=== PATIENT | female | born 1970 | race Caucasian/White ===

== ENCOUNTER 2017-04-09 16:40 | Emergency (ER) | payer OTHER ==
[2017-04-09 16:55] VITALS: BP 107/72
--- NOTE | 2017-04-09 18:40 | UC ---
Eye Complaint HPI - HPI Summary HPI Summary: 46 y/o female presents to the urgent care c/o RT eye redness with moderate yellowish eye discharge for the past week. Associated with a mild SIMS 4/10. Pt reports She has HX of allergic rhinitis and she thought the first days it was allergic conjunctivitis and placed some clear drops on her eyes. But now she is waking up with a crusting yellowish discharge in the morning w/ mild visual disturbance. Pt denies fever, eye pain, SOB, chest pain. N/V/D. Pt has not other complains. - History of Current Complaint Hx Obtained From: Patient Hx Last Menstrual Period: 03/21/17 ?: No Onset/Duration: Sudden Onset Timing: Constant Severity Initially: Mild Severity Currently: Moderate Pain Intensity: 4 - headache. Pain Scale Used: 0-10 Numeric Location of Injury: Conjunctiva - RT red conjunctiva Character: Sharp Aggravating Factor(s): Nothing Alleviating Factor(s): Nothing Associated Signs And Symptoms: Positive: Drainage (Purulent), Vision Impairment Right. Negative: Fever <Juanita Stokes - Last Filed: 04/10/17 00:09> <Rhonda Salas - Last Filed: 04/10/17 08:11> - History of Current Complaint Chief Complaint: UCEye Stated Complaint: EYE ISSUE Time Seen by Provider: 04/09/17 18:28 - Allergies/Home Medications Allergies/Adverse Reactions: Allergies Allergy/AdvReac Type Severity Reaction Status Date / Time No Known Allergies Allergy Verified 08/15/16 16:04 PMH/Surg Hx/FS Hx/Imm Hx Previously Healthy: Yes Other Respiratory History: allergic rhinitis - Surgical History Surgical History: Yes Surgery Procedure, Year, and Place: tubal ligation; C-sections; wisdom teeth - Family History Known Family History: Positive: Hypertension, Respiratory Disease - Social History Occupation: Employed Full-time Lives: With Family Alcohol Use: Daily Substance Use Type: None Smoking Status (MU): Former Smoker Have You Smoked in the Last Year: No When Did the Patient Quit Smoking/Using Tobacco: 16 yrs ago <Juanita Stokes - Last Filed: 04/10/17 00:09> Review of Systems Constitutional: Negative Skin: Negative Eyes: Blurred Vision, Drainage - yellowish, Eye Redness - Left eye ENT: Negative Respiratory: Negative Cardiovascular: Negative Gastrointestinal: Negative Genitourinary: Negative Motor: Negative Neurovascular: Negative Musculoskeletal: Negative Neurological: Negative Psychological: Negative All Other Systems Reviewed And Are Negative: Yes <Juanita Stokes - Last Filed: 04/10/17 00:09> Physical Exam Triage Information Reviewed: Yes Appearance: Well-Appearing, No Pain Distress, Well-Nourished, Thin Vital Signs: Initial Vital Signs Temp 98 F 04/09/17 16:52 Pulse 76 04/09/17 16:52 Resp 18 04/09/17 16:52 BP 107/72 04/09/17 16:52 Pulse Ox 100 04/09/17 16:52 Vital Signs Reviewed: Yes Eyes: Positive: Conjunctiva Inflamed - B/L PERRLA, EOMI, fundi grossly normal. LF conjunctiva moderately injected, mild yellowish discharge, RT conjuntiva clear. ENT: Positive: Normal ENT inspection, Hearing grossly normal, Pharynx normal, TMs normal. Negative: Nasal congestion, Nasal drainage Dental Exam: Normal Neck exam: Normal Neck: Positive: Supple, Nontender, No Lymphadenopathy Respiratory Exam: Normal Respiratory: Positive: Chest non-tender, Lungs clear, Normal breath sounds Cardiovascular Exam: Normal Cardiovascular: Positive: RRR, No Murmur, Pulses Normal, Brisk Capillary Refill Abdominal Exam: Normal Abdomen Description: Positive: Nontender, No Organomegaly, Soft. Negative: CVA Tenderness (R), CVA Tenderness (L) Bowel Sounds: Positive: Present Musculoskeletal Exam: Normal Musculoskeletal: Positive: Strength Intact, ROM Intact, No Edema Neurological Exam: Normal Psychological Exam: Normal Skin Exam: Normal <Juanita Stokes - Last Filed: 04/10/17 00:09> Vital Signs: Initial Vital Signs Temp 98 F 04/09/17 16:52 Pulse 76 04/09/17 16:52 Resp 18 04/09/17 16:52 BP 107/72 04/09/17 16:52 Pulse Ox 100 04/09/17 16:52 <Rhonda Salas - Last Filed: 04/10/17 08:11> Eye Complaint Course/Dx - Course Course Of Treatment: 46 y/o female presents to the urgent care c/o RT eye redness with moderate yellowish eye discharge for the past week. Associated with a mild SIMS 4/10. Pt reports She has HX of allergic rhinitis and she thought the first days it was allergic conjunctivitis and placed some clear drops on her eyes. But now she is waking up with a crusting yellowish discharge in the morning w/ mild visual disturbance. Pt denies fever, eye pain, SOB, chest pain. N/V/D. Hx obtained. PE abnormal findings: B/L PERRLA, EOMI, fundi grossly normal No tenderness on palpation, B/L eyelid with mild swelling. LF conjunctiva moderately injected, mild yellowish discharge, RT conjuntiva clear. Most liley Bacterial conjuntivits. Pt Rx Ciprofloxacin opthalmic drops and advised if symptoms do not improve or worsen to f/u with Opthalmologist Dr Ok Mobley in 2-3 days. Pt understood and agreed. - Differential Dx/Diagnosis Differential Diagnosis/HQI/PQRI: Conjunctivitis, Corneal Abrasion, Keratitis, Orbital Cellulitis, Uveitis Provider Diagnoses: Left acute bacterial conjunctivitis. <Juanita Stokes - Last Filed: 04/10/17 00:09> Discharge <Juanita Stokes - Last Filed: 04/10/17 00:09> <Rhonda Salas - Last Filed: 04/10/17 08:11> - Discharge Plan Condition: Stable Disposition: HOME Prescriptions: Ciprofloxacin 0.3% OPTH.AIYANA* [Cipro 0.3% Opth*] 2 drop RIGHT EYE Q2H #1 btl Patient Education Materials: Conjunctivitis (ED) Referrals: [facility] – [place] [facility] [Outside] No Primary Care Phys,NOPCP [Primary Care Provider] - Ok Mobley MD [Medical Doctor] - 2 Days Additional Instructions: Please apply ophthalmic drops as instructed and finish the full course of treatment to avoid recurrent infection. If you do not improve or if symptoms worsen please f/u with opthal mologist for further evalution and treatment Attestation Statement User Type: Provider - I was available for consult. This patient was seen by the TROY. The patient was not presented to, seen by, or examined by me. -Romero <Rhonda Salas - Last Filed: 04/10/17 08:11>
== END 2017-04-09 18:50 | disposition home or self-care (01) ==
LOC: UCEAST 16:40
DX: B99.8 Other infectious disease (principal); H10.89 Other conjunctivitis
CPT/HCPCS: 99212; G0463